=== PATIENT | male | born 1995 | race Caucasian/White ===

== ENCOUNTER → 2017-12-30 | Outpatient (REF) | payer OTHER ==
[2017-12-30 20:41] LABS: APPEARANCE, URINE CLEAR (CLEAR); BACTERIA, URINE AUTO NEGATIVE (NEGATIVE); BILIRUBIN, URINE AUTO NEGATIVE (NEGATIVE); BLOOD, URINE BLOOD NEGATIVE (NEGATIVE); COLOR, URINE YELLOW (YELLOW); GLUCOSE, URINE (UA) AUTO NEGATIVE (NEGATIVE); KETONE, URINE AUTO NEGATIVE (NEGATIVE); LEUKOCYTE ESTERASE, URINE AUTO NEGATIVE (NEGATIVE); MUCUS, URINE SMALL (NEGATIVE); NITRITE, URINE AUTO NEGATIVE (NEGATIVE); PROTEIN, URINE AUTO NEGATIVE (NEGATIVE); RBC, URINE AUTO 1 /HPF (0-3); SPECIFIC GRAVITY URINE AUTO 1.026 (1.002-1.035); SQUAMOUS EPITHELIAL CELL UR AU 0 /HPF (0-6); UROBILINOGEN, URINE AUTO 0.2 mg/dL (0.0-2.0); WBC, URINE AUTO 1 /HPF (0-3)
== END ==
LOC: M SMT 17:10
DX: N50.819 Testicular pain, unspecified (principal)

== ENCOUNTER 2020-02-05 23:32 | Emergency (ER) | payer OTHER, SELFPAY ==
[~2020-02-05] VITALS: Ht 165.1 cm; Wt 75.0 kg
[2020-02-06] MEDS ORDERED: MORPHINE 4 MG/ML 1ML VIAL/SYRINGE (J2270) IV ONE
[2020-02-06] MEDS ORDERED: NS 1,000 ML IV ONE
[2020-02-06] MEDS ORDERED: NEUR600T PO (00:09)
--- NOTE | 2020-02-06 00:47 | REPVR ---
PROCEDURE INFORMATION: Exam: CT Cervical Spine Without Contrast Exam date and time: 02/05/2020 12:06 AM Age: 24 years old Clinical indication: Injury or trauma; Injury history: Roof collapsed on him; Work related; Initial encounter; Blunt trauma; Additional info: [facility] TECHNIQUE: Imaging protocol: Computed tomography images of the cervical spine without contrast. Radiation optimization: All CT scans at this facility use at least one of these dose optimization techniques: automated exposure control; mA and/or kV adjustment per patient size (includes targeted exams where dose is matched to clinical indication); or iterative reconstruction. COMPARISON: No relevant prior studies available. FINDINGS: Vertebrae: There are no anterior wedging deformities. No acute lucent fracture lines are visualized. Discs/Spinal canal/Neural foramina: There is no central canal or neural foraminal stenosis demonstrated by CT. Lungs: Lung apices are normal. IMPRESSION: No acute cervical spinal injury demonstrated by CT. Electronically signed by: Consuelo Mendez On 02/06/2020 00:46:37 AM
--- NOTE | 2020-02-06 00:50 | REPVR ---
PROCEDURE INFORMATION: Exam: CT Head Without Contrast Exam date and time: 02/05/2020 12:06 AM Age: 24 years old Clinical indication: Injury or trauma; Injury history: Roof collapsed on him; Work related; Initial encounter; Blunt trauma (contusions or hematomas); Additional info: [facility] TECHNIQUE: Imaging protocol: Computed tomography of the head without contrast. Radiation optimization: All CT scans at this facility use at least one of these dose optimization techniques: automated exposure control; mA and/or kV adjustment per patient size (includes targeted exams where dose is matched to clinical indication); or iterative reconstruction. COMPARISON: No relevant prior studies available. FINDINGS: Brain: There is no evidence of intracranial hemorrhage. No abnormal extra-axial fluid collections are identified. No mass effect or midline shift is seen. Markham-white differentiation is preserved throughout. Ventricles: The ventricles are normal in size and configuration. Bones/joints: No calvarial fracture is seen. Sinuses: There is minimal left maxillary sinus mucosal disease.No air-fluid levels. Mastoid air cells: There is no mastoid effusion detected. IMPRESSION: No acute intracranial pathology demonstrated by CT. Electronically signed by: Consuelo Mendez On 02/06/2020 00:49:58 AM
--- NOTE | 2020-02-06 00:53 | REPVR ---
PROCEDURE INFORMATION: Exam: CT Chest Without Contrast Exam date and time: 02/05/2020 12:06 AM Age: 24 years old Clinical indication: Injury or trauma; Injury history: Roof collapsed on him; Work related; Initial encounter; Blunt trauma (contusions or hematomas); Additional info: [facility] TECHNIQUE: Imaging protocol: Computed tomography of the chest without contrast. 3D rendering: MIP and/or 3D reconstructed images were created by the technologist. Radiation optimization: All CT scans at this facility use at least one of these dose optimization techniques: automated exposure control; mA and/or kV adjustment per patient size (includes targeted exams where dose is matched to clinical indication); or iterative reconstruction. COMPARISON: No relevant prior studies available. FINDINGS: Lungs: Unremarkable. No consolidation. No masses. Pleural space: Unremarkable. No pneumothorax. No pleural effusion. Heart: Unremarkable. No cardiomegaly. No pericardial effusion. Aorta: Unremarkable. No aortic aneurysm. Lymph nodes: Unremarkable. No enlarged lymph nodes. Bones/joints: Unremarkable. No acute fracture. Soft tissues: Unremarkable. IMPRESSION: No acute findings. Electronically signed by: Car Sweeney On 02/06/2020 00:53:00 AM
[2020-02-06 01:45] VITALS: BP 147/76
--- NOTE | 2020-02-06 07:51 | REP ---
Clinical: Trauma. Technique: AP and lateral views of the right humerus. Findings: No acute fracture or dislocation. Surrounding soft tissues are normal. Impression: No acute fracture or dislocation. Electronically Signed by Gilson Avila MD 02/06/2020 07:43 A
--- NOTE | 2020-02-06 07:56 | REP ---
Clinical: Trauma . Technique: Internal rotation, external rotation, and Y view right shoulder . Findings: No acute fracture or dislocation. The acromioclavicular and glenohumeral joints are intact. No periarticular calcifications or degenerative changes are appreciated. Sub acromial space is normal. Surrounding soft tissues are unremarkable. Impression: Normal right shoulder radiographs. Electronically Signed by Gilson Avila MD 02/06/2020 07:47 A
== END 2020-02-06 02:02 | disposition home or self-care (01) ==
LOC: M ED 23:32
DX: S43.101A Unspecified dislocation of right acromioclavicular joint, initial encounter (principal); W20.1XXA Struck by object due to collapse of building, initial encounter; Y93.89 Activity, other specified; Y92.9 Unspecified place or not applicable; Y99.9 Unspecified external cause status

== ENCOUNTER 2023-07-16 22:00 | Emergency (ER) | payer OTHER, SELFPAY ==
[~2023-07-16] VITALS: Ht 170.2 cm; Wt 69.5 kg
[~2023-07-16 22:00] MED LIST: NEUR600T PO
[2023-07-17] MEDS ORDERED: PROPARACAINE 0.5% OPHTH SOL 15ML OD ONE (00:25)
[2023-07-17] MEDS ORDERED: FLUORESCEIN OPHTH 1MG STRIP OD ONE (00:25)
[2023-07-17] MEDS ORDERED: ERYTHROMYCIN OPHTH OINT OD ONE (00:30)
[2023-07-17] MEDS ORDERED: BOOSTRIX VACCINE (TETANUS/DIPHTH/ACEL. PERTUSSIS) 0.5ML SYR IM.IMMUN ONE (00:30)
[2023-07-17] MEDS ORDERED: ACETAMINOPHEN TAB 650MG DOSE (2X325MG) PO ONE (00:55)
[2023-07-17] MEDS ORDERED: IBUPROFEN 600MG TAB PO ONE (00:55)
[2023-07-17 01:12] VITALS: BP 132/87; TEMP 97; O2SAT 99
== END 2023-07-17 01:13 | disposition home or self-care (01) ==
LOC: M ED 22:00
DX: S05.01XA Injury of conjunctiva and corneal abrasion without foreign body, right eye, initial encounter (principal); T15.01XA Foreign body in cornea, right eye, initial encounter; Z23 Encounter for immunization

== ENCOUNTER → 2023-11-25 | Outpatient (CLI) | payer OTHER | LOC: M PLAIMG 15:16 | PROVIDERS: ATTEND Nurse Practitioner Family | DX: R51.9 Headache, unspecified (principal) ==

== ENCOUNTER → 2024-02-24 | Outpatient (CLI) | payer OTHER ==
[2024-02-24 18:44] LABS: BASO # 0.1 10^3/uL (0.0-0.2); BASO % 0.8 % (0.0-1.0); EOS # 0.1 10^3/uL (0.0-0.5); EOS % 1.6 % (0.0-3.0); HEMATOCRIT 43.9 % (42.0-52.0); HEMOGLOBIN 15.1 g/dl (13.5-17.5); LYMPH # 2.7 10^3/uL (1.5-5.0); LYMPH % 30.2 % (24.0-44.0); MEAN CORPUSCULAR HEMOGLOBIN 30.4 pg (27.0-33.0); MEAN CORPUSCULAR HGB CONC 34.4 g/dl (32.0-36.5); MEAN CORPUSCULAR VOLUME 88.3 fl (80.0-96.0); MONO # 0.6 10^3/uL (0.0-0.8); MONO % 6.5 % (2.0-8.0); NEUTROPHILS # 5.3 10^3/uL (1.5-8.5); NEUTROPHILS % 60.6 % (36.0-66.0); PLATELET COUNT, AUTOMATED 300 10^3/uL (150-450); RED BLOOD COUNT 4.97 10^6/uL (4.30-6.10); WHITE BLOOD COUNT 8.8 10^3/uL (4.0-10.0)
[2024-02-24 18:53] LABS: ERYTHROCYTE SEDIMENTATION RATE 7 mm/hr (0-15)
[2024-02-24 19:09] LABS: RHEUMATOID FACTOR QUANT 7.9 IU/ML (<14); THYROID STIMULATING HORMONE 1.058 uIU/ML (0.55-4.78); TOTAL 25(OH) VITAMIN D 44.8 NG/ML (20.0-100.0)
[2024-02-24 19:10] LABS: ALBUMIN 4.1 G/DL (3.2-5.2); ALKALINE PHOSPHATASE 66 U/L (46-116); ALT/SGPT 17 U/L (7.0-40); AST/SGOT 11 U/L (<34); BILIRUBIN,TOTAL 1.7 MG/DL (0.3-1.2); BLOOD UREA NITROGEN 16 MG/DL (9-23); CALCIUM LEVEL 9.4 MG/DL (8.5-10.1); CARBON DIOXIDE LEVEL 30 MMOL/L (20-31); CHLORIDE LEVEL 106 MMOL/L (98-107); CREATININE FOR GFR 1.21 MG/DL (0.70-1.30); GLOMERULAR FILTRATION RATE > 60.0 (>60); GLUCOSE, FASTING 73 MG/DL (60-100); SODIUM LEVEL 141 MMOL/L (136-145); TOTAL PROTEIN 7.1 G/DL (5.7-8.2)
[2024-02-27 15:32] LABS: ANA SCREEN, IFA POSITIVE (NEGATIVE)
== END ==
LOC: M PLALAB 15:47
PROVIDERS: ATTEND Psychiatry & Neurology Neurology
DX: R51.9 Headache, unspecified (principal); Z79.899 Other long term (current) drug therapy